=== PATIENT | male | born 1990 | race Caucasian/White ===

== ENCOUNTER 2017-03-08 21:49 | Emergency (ER) | payer OTHER ==
[2017-03-08 23:20] LABS: BASOPHIL % 1.7 % (0-2); PLATELET COUNT 242 x10^3mcL (130-400); RED CELL DISTRIBUTION WIDTH 12.5 % (11.5-14.5)
[2017-03-08 23:40] LABS: ALKALINE PHOSPHATASE 50 U/L (46-116); ALT/SGPT 46 U/L (16-63); AST/SGOT 30 U/L (15-37); BILIRUBIN TOTAL 0.3 mg/dL (0.20-1.00); CALCIUM 8.6 mg/dL (8.5-10.1); CARBON DIOXIDE 25.2 mmol/L (21-32); GFR1 > 60 mL/min; GLUCOSE SERUM 151 mg/dL (74-106)
[2017-03-08 23:45] LABS: CHLORIDE SERUM 105 mmol/L (98-107); SODIUM SERUM 142 mmol/L (136-145)
[2017-03-09 00:59] LABS: microscopic required? YES; urine erythrocyte 2+ (NEGATIVE)
[2017-03-09 02:53] VITALS: BP 119/48
== END 2017-03-09 02:53 | disposition home or self-care (01) ==
LOC: ED 21:49
PROVIDERS: Emergency Medicine
DX: N23 Unspecified renal colic (principal)
CPT/HCPCS: J1885; J2405; J3010; J7030

== ENCOUNTER 2017-05-15 12:58 | Emergency (ER) | payer OTHER ==
[~2017-05-15] VITALS: Ht 180.3 cm; Wt 88.0 kg
[2017-05-15 13:57] LABS: CALCIUM 9.2 mg/dL (8.5-10.1); CARBON DIOXIDE 31.1 mmol/L (21-32); CHLORIDE SERUM 102 mmol/L (98-107); CREATININE SERUM 0.9 mg/dL (0.7-1.3); GFR1 > 60 mL/min; GLUCOSE SERUM 104 mg/dL (74-106); POTASSIUM SERUM 4.1 mmol/L (3.5-5.1); SODIUM SERUM 140 mmol/L (136-145)
[2017-05-15 15:17] VITALS: BP 143/72
== END 2017-05-15 15:17 | disposition home or self-care (01) ==
LOC: ED 12:58
PROVIDERS: Emergency Medicine
DX: K52.9 Noninfective gastroenteritis and colitis, unspecified (principal); Z90.89 Acquired absence of other organs
CPT/HCPCS: 36415; J1885

== ENCOUNTER 2017-06-05 13:51 | Emergency (ER) | payer OTHER ==
[~2017-06-05] VITALS: Ht 180.3 cm; Wt 86.2 kg
[2017-06-05 14:49] LABS: UA SPECIFIC GRAVITY >=1.030 (1.005-1.035); microscopic required? YES; urine erythrocyte 3+ (NEGATIVE)
[2017-06-05 14:51] LABS: BASOPHIL % 0.5 % (0-2); PLATELET COUNT 220 x10^3mcL (130-400); RED CELL DISTRIBUTION WIDTH 12.1 % (11.5-14.5)
[2017-06-05 14:57] LABS: CALCIUM 7.9 mg/dL (8.5-10.1); CARBON DIOXIDE 29.5 mmol/L (21-32); CHLORIDE SERUM 105 mmol/L (98-107); CREATININE SERUM 0.8 mg/dL (0.7-1.3); GFR1 > 60 mL/min; GLUCOSE SERUM 91 mg/dL (74-106); POTASSIUM SERUM 3.6 mmol/L (3.5-5.1); SODIUM SERUM 141 mmol/L (136-145)
[2017-06-05 15:02] LABS: ALBUMIN 3.7 g/dL (3.4-5.0); ALKALINE PHOSPHATASE 52 U/L (46-116); ALT/SGPT 28 U/L (16-63); AMYLASE 55 U/L (25-115); AST/SGOT 17 U/L (15-37); BILIRUBIN TOTAL 0.4 mg/dL (0.20-1.00); LIPASE 166 IU/L (73-393); TOTAL PROTEIN, SERUM 6.8 g/dL (6.4-8.2)
[2017-06-05 16:01] VITALS: BP 148/67
[2017-06-05 16:48] LABS: T3 TOTAL 0.99 ng/mL
[2017-06-05 17:11] LABS: AMPHETAMINE QUAL UR NONE DETECTED (NEG <=1000)
[2017-06-05 17:12] LABS: FREE T4 0.96 ng/dL (0.76-1.46); FREE THYROXINE INDEX 2.4 ug/dL (1.4-4.5); T4(THYROXINE) 6.8 ug/dL (4.7-13.3)
[2017-06-05 17:25] LABS: MAGNESIUM 1.8 mg/dL (1.8-2.4); PHOSPHOROUS 2.8 mg/dL (2.5-4.9)
== END 2017-06-05 17:03 | disposition left against medical advice (07) ==
LOC: ED 13:51 → DU 15:51 → ED 15:51
PROVIDERS: Emergency Medicine; Family Medicine
DX: N13.4 Hydroureter (principal); N13.30 Unspecified hydronephrosis; F12.10 Cannabis abuse, uncomplicated
CPT/HCPCS: 83880; 84439; J7030; Q0092